=== PATIENT | female | born 1965 | race African-American/Black ===

== ENCOUNTER 2020-12-31 11:22 | Emergency (ER) | payer SELFPAY ==
[~2020-12-31] VITALS: Ht 175.3 cm; Wt 92.9 kg
--- NOTE | 2020-12-31 11:30 | NUR ---
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
[2020-12-31 13:11] VITALS: BP 117/71
--- NOTE | 2020-12-31 13:11 | NUR ---
RECEIVED REPORT FROM VERONICA CASTRO. PT RESTING ON HOSEARITA. NADN. HOLCOMB.
== END 2020-12-31 13:36 | disposition home or self-care (01) ==
LOC: ED 13:32
DX: R20.2 Paresthesia of skin (principal); R94.31 Abnormal electrocardiogram [ECG] [EKG]
CPT/HCPCS: 82962; 93005; 99283